=== PATIENT | female | born 1985 | race Hispanic/Latino ===

== ENCOUNTER → 2016-04-07 | Outpatient (CLI) | payer OTHER ==
--- NOTE | 2016-04-07 13:58 | REP ---
CT MAXILLOFACIAL SINUS: 04/07/2016 CLINICAL HISTORY: Sinusitis. FINDINGS: There are no prior studies. The coronal reconstructions show no significant septal deviation. Frontal sinuses are not developed. There is bilateral ethmoid sinus mucosal thickening or opacification throughout. There is minor mucosal thickening in the left greater than right sphenoid sinuses. Maxillary antra show some mucosal thickening on the right and left side with air fluid on the left indicating acute and chronic sinusitis there. 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 The hiatus semilunaris is also occluded right more than left. There is no vangie bullosa of the middle turbinates. Nasal air passages are maintained with some mucosal thickening inferiorly in the right side. There is no bony destructive lesion about the paranasal sinuses. Zygomatic arches, mandibular condyles, and rami are unremarkable. Visualized mastoids are unremarkable. The skull base and ring of C1 also intact. IMPRESSION: 1. Acute and chronic sinusitis as described. There is occlusion of the OMCs due to mucosal thickening bilaterally with infundibula and hiatus semilunaris occluded or stenotic on both sides due to mucosal thickening. No bony destructive lesion. Signed by Lefty Nieto MD 04/07/2016 02:32 P
== END ==
LOC: M RAD 10:37
PROVIDERS: ATTEND Nurse Practitioner Family
DX: J32.9 Chronic sinusitis, unspecified (principal)

== ENCOUNTER → 2016-06-25 | Day surgery (SDC) | payer OTHER ==
[~2016-06-25] VITALS: Ht 157.5 cm; Wt 79.8 kg
[~2016-06-25] MED LIST: AZEL0.055; B-122500 PO; CETI10TA PO; EPINEPHrine 1MG/ML INJ 30ML MD-VIAL As Ordered ONE; ESMOLOL INJ 100MG/10ML VIAL As Ordered ONE; FLON1SPR; GLYCOPYRROLATE INJ 0.2 MG/ML 2 ML VIAL As Ordered ONE; LABETALOL HCL 100 MG/20 ML VIAL As Ordered ONE; LIDOCAINE 2% INJ 100 MG/5 ML SDV (FOR ANES.) As Ordered ONE; LIDOCAINE W/EPINEPHRINE 1% 20ML VIAL As Ordered ONE; LR 1,000 ML IV SCH; MEPERIDINE INJ 25 MG/ML VIAL (J2175) IV PRN; METHYLENE BLUE 0.5% (5MG/ML) 10 ML AMP (PROVAYBLUE)(Q9968 PER 1MG) As Ordered ONE; METOCLOPRAMIDE INJ 10MG/2ML VIAL (J2765) IV PRN; MIDAZOLAM INJ 2 MG/2 ML VIAL (J2250) As Ordered ONE; MULT1TAB10 PO; NEOSTIGMINE 1MG/ML 5 ML SYRINGE (J2710) As Ordered ONE; ONDANSETRON 4 MG ORAL DISINTEGRATING TAB (S0181) PO ONE; ONDANSETRON 4MG/2ML VIAL (J2405) As Ordered ONE; ONDANSETRON 4MG/2ML VIAL (J2405) IV PRN; PROPOFOL 200 MG/20 ML VIAL As Ordered ONE; ROCURONIUM BROMIDE 50 MG/5 ML VIAL As Ordered ONE; SALI0.653; SODIUM CHLORIDE 0.9% NASAL GEL 15MG (AYR) As Ordered ONE; TYLE1TAB5 PO; [UNRECOGNIZED DRUG - CODE] PO; dexameTHASONE 4 MG/ML 1ML VIAL (J1100) IV ONE; fentaNYL 100 MCG/2 ML INJECTION (J3010) As Ordered ONE; fentaNYL 250 MCG/5 ML INJECTION (J3010) As Ordered ONE
[2016-06-25 06:22] LABS: CONTROL LINE UCG INT CTR LINE PRESENT
[2016-06-25] MEDS: fentaNYL 100 MCG/2 ML INJECTION (J3010) IV PRN ×3 (10:09→10:30)
[2016-06-25] MEDS: PERCOCET 5MG/325MG TAB PO PRN ×2 (10:42→11:45)
[2016-06-25 14:15] VITALS: BP 131/74
== END | disposition home or self-care (01) ==
LOC: M SDC 05:53
PROVIDERS: ATTEND Otolaryngology
DX: J32.0 Chronic maxillary sinusitis (principal); J32.2 Chronic ethmoidal sinusitis; J34.3 Hypertrophy of nasal turbinates; J45.909 Unspecified asthma, uncomplicated; Z79.899 Other long term (current) drug therapy; Z88.8 Allergy status to other drugs, medicaments and biological substances
CPT/HCPCS: 31255; 31267; 84703; 88305; C2625; J1100; J2250; J2405; J2710; J3010; Q9968